=== PATIENT | male | born 1985 | race Caucasian/White ===

== ENCOUNTER 2018-01-26 23:02 | Inpatient (IN) | payer OTHER ==
[~2018-01-26] VITALS: Ht 167.6 cm; Wt 55.5 kg
[2018-01-26 23:09] VITALS: BP_SYST 104
[2018-01-27] MEDS ORDERED: NACL 0.9% 1,000 ML IV ONE (00:39)
[2018-01-27] MEDS ORDERED: ONDANSETRON HCL 4 MG/2 ML VIAL IVP ONE (00:45)
[2018-01-27] MEDS ORDERED: MORPHINE 4 MG/ML INJ. SYRINGE IVP ONE ×2 (00:45→02:15)
[2018-01-27 01:05] LABS: BASOPHILS # (AUTO) 0.2 K/uL (0.0-0.2); BASOPHILS % (AUTO) 1.3 % (0.0-2.0); HEMATOCRIT 48.5 % (36-54); HEMOGLOBIN 15.7 g/dL (14.0-18.0); LYMPHOCYTES # (AUTO) 0.7 K/uL (1.0-5.5); MEAN CORPUSCULAR HEMOGLOBIN 29 pg (27-31); MEAN CORPUSCULAR HGB CONC 32 % (32-36); MEAN CORPUSCULAR VOLUME 90 fL (79.0-98.0); MONOCYTES # (AUTO) 0.5 K/uL (0.0-1.0); MONOCYTES % (AUTO) 3.3 % (1.7-9.3); NEUTROPHILS # (AUTO) 13.5 K/uL (1.8-7.7); NEUTROPHILS % (AUTO) 90.4 % (40.0-70.0); PLATELET COUNT (AUTO) 219 K/uL (130-430); RED BLOOD CELL COUNT(AUTO) 5.41 MIL/uL (4.2-6.2); WHITE BLOOD COUNT (AUTO) 14.9 K/uL (4.8-10.8)
[2018-01-27 01:34] LABS: CALCIUM 9.7 mg/dL (8.4-11.0); CREATININE 1.11 mg/dL (0.55-1.30); POTASSIUM 3.3 mmol/L (3.5-5.1)
[2018-01-27] MEDS ORDERED: IOHEXOL 100 ML IV ONE (01:34)
[2018-01-27 01:37] LABS: PROTHROMBIN TIME 10.5 SECS (9.5-12.5)
[2018-01-27 01:40] LABS: ALBUMIN 4.4 g/dL (3.4-4.8); TOTAL BILIRUBIN 0.6 mg/dL (0.0-1.0)
[2018-01-27] MEDS: NACL 0.9% 1,000 ML IV ONE ×2 (02:03→02:18)
[2018-01-27 02:27] LABS: BILIRUBIN,URINE NEGATIVE (NEGATIVE); BLOOD, URINE NEGATIVE (NEGATIVE); CLARITY/URINE CLEAR (CLEAR); COLOR,URINE YELLOW (YELLOW); GLUCOSE,URINE NEGATIVE (NEGATIVE); KETONES,URINE 2+ (NEGATIVE); LEUKOCYTE ESTERASE ,URINE NEGATIVE (NEGATIVE); NITRITE, URINE NEGATIVE (NEGATIVE); PH,URINE 7.5 (5.0-8.0); PROTEIN URINE NEGATIVE (NEGATIVE); UROBILINOGEN,URINE 0.2 (0.2-1.0)
[2018-01-27] MEDS ORDERED: MORPHINE 4 MG/ML INJ. SYRINGE IVP PRN (02:45)
[2018-01-27] MEDS ORDERED: metroNIDAZOLE 500 mg/NS 100 ML IV ONE (02:45)
[2018-01-27] MEDS ORDERED: ONDANSETRON HCL 4 MG/2 ML VIAL IVP PRN (02:45)
[2018-01-27] MEDS ORDERED: KETOROLAC TROMETHAMINE 30 MG VIAL IVP PRN (02:45)
[2018-01-27] MEDS ORDERED: PIPERACILLIN/TAZO 3.375 GM in NS 50 ML IV ONE (02:45)
[2018-01-27] MEDS ORDERED: PIPERACILLIN/TAZOBACTAM 3.375 GM/VIAL (ZOSYN) IV ONE (02:53)
[2018-01-27 03:22] VITALS: BP_SYST 118
[2018-01-27] MEDS: D5/0.45 NS 1,000 ML IV SCH ×3 (03:49→23:18)
[2018-01-27 07:29] LABS: INR 1.1 (0.80-1.20); PROTHROMBIN TIME 10.9 SECS (9.5-12.5)
[2018-01-27 07:31] LABS: CALCIUM 8.7 mg/dL (8.4-11.0); CREATININE 0.76 mg/dL (0.55-1.30); POTASSIUM 4.4 mmol/L (3.5-5.1)
[2018-01-27 07:33] LABS: HEMATOCRIT 39.7 % (36-54); HEMOGLOBIN 12.9 g/dL (14.0-18.0); LYMPHOCYTES # (AUTO) 0.5 K/uL (1.0-5.5); MEAN CORPUSCULAR HEMOGLOBIN 29 pg (27-31); MEAN CORPUSCULAR HGB CONC 32 % (32-36); MEAN CORPUSCULAR VOLUME 90 fL (79.0-98.0); MONOCYTES # (AUTO) 0.6 K/uL (0.0-1.0); MONOCYTES % (AUTO) 4.4 % (1.7-9.3); NEUTROPHILS # (AUTO) 11.8 K/uL (1.8-7.7); NEUTROPHILS % (AUTO) 91.6 % (40.0-70.0); PLATELET COUNT (AUTO) 183 K/uL (130-430); RED BLOOD CELL COUNT(AUTO) 4.42 MIL/uL (4.2-6.2); RED CELL DISTRIBUTION WIDTH 11.9 % (9.0-15.0); WHITE BLOOD COUNT (AUTO) 12.9 K/uL (4.8-10.8)
[2018-01-27] MEDS: PIPERACILLIN/TAZO 3.375 GM in NS 50 ML IV SCH ×4 (08:18→23:11)
[2018-01-27] MEDS: metroNIDAZOLE 500 mg/NS 100 ML IV SCH ×2 (10:22→17:34)
[2018-01-27 13:16] VITALS: BP_SYST 99
[2018-01-27 16:40] VITALS: BP_SYST 123
[2018-01-27 20:00] VITALS: BP_SYST 99
[2018-01-28] MEDS: metroNIDAZOLE 500 mg/NS 100 ML IV SCH ×3 (00:09→16:36)
[2018-01-28 01:33] VITALS: BP_SYST 112
[2018-01-28] MEDS: PIPERACILLIN/TAZO 3.375 GM in NS 50 ML IV SCH ×3 (05:33→17:44)
[2018-01-28 08:00] VITALS: BP_SYST 117
[2018-01-28] MEDS: D5/0.45 NS 1,000 ML IV SCH (10:00)
[2018-01-28 12:10] VITALS: BP_SYST 117
[2018-01-28 16:33] VITALS: BP_SYST 127
[2018-01-28 20:00] VITALS: BP_SYST 124
[2018-01-29] VITALS (9 sets, daily range): BP systolic 103–137
[2018-01-29] MEDS: PIPERACILLIN/TAZO 3.375 GM in NS 50 ML IV SCH ×5 (00:06→23:39)
[2018-01-29] MEDS: D5/0.45 NS 1,000 ML IV SCH ×3 (00:10→19:54)
[2018-01-29] MEDS: metroNIDAZOLE 500 mg/NS 100 ML IV SCH ×3 (01:57→17:04)
[2018-01-29 09:01] LABS: BASOPHILS # (AUTO) 0.1 K/uL (0.0-0.2); EOSINOPHILS # (AUTO) 0.1 K/uL (0.0-0.4)
[2018-01-29 09:07] LABS: BASOPHILS % (AUTO) 1.2 % (0.0-2.0); EOSINOPHILS % (AUTO) 1.7 % (0.0-4.0); HEMATOCRIT 42.8 % (36-54); HEMOGLOBIN 13.6 g/dL (14.0-18.0); LYMPHOCYTES # (AUTO) 1.3 K/uL (1.0-5.5); LYMPHOCYTES % (AUTO) 30.2 % (20.5-51.5); MEAN CORPUSCULAR HEMOGLOBIN 29 pg (27-31); MEAN CORPUSCULAR HGB CONC 32 % (32-36); MEAN CORPUSCULAR VOLUME 90 fL (79.0-98.0); MONOCYTES # (AUTO) 0.7 K/uL (0.0-1.0); MONOCYTES % (AUTO) 15.1 % (1.7-9.3); NEUTROPHILS # (AUTO) 2.3 K/uL (1.8-7.7); NEUTROPHILS % (AUTO) 51.8 % (40.0-70.0); PLATELET COUNT (AUTO) 179 K/uL (130-430); RED BLOOD CELL COUNT(AUTO) 4.77 MIL/uL (4.2-6.2); RED CELL DISTRIBUTION WIDTH 12.4 % (9.0-15.0); WHITE BLOOD COUNT (AUTO) 4.5 K/uL (4.8-10.8)
[2018-01-29] MEDS ORDERED: ONDANSETRON HCL 4 MG/2 ML VIAL IVP PRN (12:45)
[2018-01-29] MEDS ORDERED: KETOROLAC TROMETHAMINE 30 MG VIAL IVP PRN (12:45)
[2018-01-29] MEDS ORDERED: fentaNYL CITRATE/PF 100 MCG/2 ML AMP IVP PRN ×2 (12:45)
[2018-01-30] MEDS: metroNIDAZOLE 500 mg/NS 100 ML IV SCH ×2 (01:33→08:15)
[2018-01-30] MEDS: PIPERACILLIN/TAZO 3.375 GM in NS 50 ML IV SCH (05:51)
[2018-01-30] MEDS: D5/0.45 NS 1,000 ML IV SCH (05:55)
[2018-01-30 09:41] VITALS: BP_SYST 116
[2018-01-30 09:53] VITALS: BP_SYST 116
== END 2018-01-30 10:30 | disposition home or self-care (01) | DRG 343 ==
LOC: SED 23:02 → SMU 01-27 02:45
PROVIDERS: ADMIT Transplant Surgery; ATTEND Transplant Surgery
PROC: 0DTJ4ZZ Resection of Appendix, Percutaneous Endoscopic Approach (ICD-10-PCS; principal; 2018-01-29 11:00)
DX: K35.80 Unspecified acute appendicitis (principal); K38.1 Appendicular concretions; K56.41 Fecal impaction
CPT/HCPCS: 36415; 71045; 80048; 80053; 81003; 83690-TC; 85025; 85610-TC; 85730-TC; 87070; 87070-TC; 87075-TC; 87081; 88304; 90656; 94010; 96361; 96365; 96367; 96375; 96376; 99285; C1727; J1885; J2270; J2405; J2543; J3490; J7030; Q9967